=== PATIENT | female | born 1975 | race Caucasian/White ===

== ENCOUNTER 2018-05-17 16:17 | Emergency (ER) | payer BC, OTHER ==
[2018-05-17] MEDS ORDERED: LIDOCAINE 2% MPF 5 ML VIAL ONE (16:58)
--- NOTE | 2018-05-17 17:41 | EDPHYS ---
Physician Documentation [facility] Name: Claire Barnhart Age: 42 yrs Sex: Female : 1975 Arrival Date: 05/17/2018 Time: 16:21 Bed 26 Private MD: Alfredo Castaneda ED Physician Santos Degroot HPI: 05/17 16:45 This 42 yrs old Female presents to ER via Ambulatory with complaints of cp Insect Bite. 16:45 The patient presents with swelling, tenderness, erythema. The complaints affect the cp medial aspect of right thigh. 16:45 Context: possible spider bite. cp 16:45 Onset: The symptoms/episode began/occurred yesterday. cp 16:45 Associated signs and symptoms: Pertinent positives: warmth, Pertinent negatives fever. cp Treatment prior to arrival includes: no previous treatment. The patient has been recently seen at an urgent care, today, for similar complaints, and was sent to the [facility] Emergency Department for further evaluation. 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 - Social history:: Smoking status: Patient/guardian denies using tobacco. - Ebola Screening: : No symptoms or risks identified at this time. ROS: 16:50 Constitutional: Negative for body aches, chills, fever, poor PO intake. cp 16:50 Eyes: Negative for injury, pain, redness, and discharge. cp 16:50 Cardiovascular: Negative for chest pain. 16:50 Respiratory: Negative for cough, shortness of breath, wheezing. 16:50 Abdomen/GI: Negative for abdominal pain, nausea, vomiting, and diarrhea. 16:50 Skin: Positive for erythema, swelling, of the medial aspect of right thigh. 16:50 All other systems are negative. Exam: 16:55 Constitutional: The patient appears in no acute distress, alert, awake, non-toxic, well cp developed, well nourished. 16:55 Head/Face: Normocephalic, atraumatic. cp 16:55 Eyes: Periorbital structures: appear normal, Conjunctiva: normal, no exudate, no injection, Lids and lashes: appear normal, bilaterally. 16:55 ENT: External ear(s): are unremarkable, Nose: is normal, Mouth: is normal, Posterior pharynx: Airway: no evidence of obstruction, patent. 16:55 Chest/axilla: Inspection: normal. 16:55 Cardiovascular: Rate: normal. 16:55 Respiratory: the patient does not display signs of respiratory distress, Respirations: normal. 16:55 Skin: cellulitis, well demarcated, on the medial aspect of right thigh, induration, that is mild is noted, located on the medial aspect of right thigh. Vital Signs: 16:28 BP 116 / 95; Pulse 98; Resp 16 S; Temp 99.0(O); Pulse Ox 98% on R/A; Weight 64.41 kg aa5 (R); Height 5 ft. 1 in. (154.94 cm) (R); Pain 7/10; 16:28 Body Mass Index 26.83 (64.41 kg, 154.94 cm) aa5 MDM: 16:29 Patient medically screened. cp 17:00 Differential diagnosis: cellulitis, abscess. cp 17:40 Data reviewed: vital signs, nurses notes. cp 17:40 Counseling: I had a detailed discussion with the patient and/or guardian regarding: the cp historical points, exam findings, and any diagnostic results supporting the discharge/admit diagnosis, to return to the emergency department if symptoms worsen or persist or if there are any questions or concerns that arise at home. ED course: VSS. Area of erythema outlined and will discharge to home for continued monitoring. 05/17 16:39 Order name: I\T\D Setup; Complete Time: 16:48 cp Administered Medications: 08:00 Drug: Clindamycin 300 mg Route: PO; ph 18:05 Follow up: Response: No adverse reaction ph 17:15 Drug: Lidocaine (2 %) 5 mg Route: Infiltration; ph 18:05 Follow up: Response: No adverse reaction ph Disposition: 05/17/18 17:40 Discharged to Home. Impression: Cellulitis of right lower limb. - Condition is Stable. - Discharge Instructions: Cellulitis, Adult. - Prescriptions for Clindamycin HCl 300 mg Oral Capsule - take 1 capsule by ORAL route every 6 hours for 10 days; 40 capsule. Ibuprofen 800 mg Oral Tablet - take 1 tablet by ORAL route every 8 hours As needed take with food; 30 tablet. - Medication Reconciliation Form, Thank You Letter, Antibiotic Education, Prescription Opioid Use form. - Follow up: Private Physician; When: 48 Hours; Reason: Worsening of condition. - Problem is new. - Symptoms have improved. Addendum: 05/21/2018 07:02 Co-signature as Attending Physician, Santos Degroot MD. r n Signatures: Santos Degroot MD MD rn Laurence Menjivar RN RN aa5 Micheline Shaw RN RN ph Brody Gilmore PA PA cp Corrections: (The following items were deleted from the chart) 05/17 18:06 17:40 05/17/2018 17:40 Discharged to Home. Impression: Cellulitis of right lower limb. ph Condition is Stable. Forms are Medication Reconciliation Form, Thank You Letter, Antibiotic Education, Prescription Opioid Use. Follow up: Private Physician; When: 48 Hours; Reason: Worsening of condition. Problem is new. Symptoms have improved. cp
--- NOTE | 2018-05-17 17:41 | ER ---
Nurse's Notes [facility] Name: Claire Barnhart Age: 42 yrs Sex: Female : 1975 Arrival Date: 05/17/2018 Time: 16:21 Bed 26 Private MD: Alfredo Castaneda Diagnosis: Cellulitis of right lower limb Presentation: 05/17 16:26 Presenting complaint: Patient states: "I think I have a spider bite on my right leg and aa5 I went to urgent care but they sent me here because it's streaking". Transition of care: patient was not received from another setting of care. Onset of symptoms was May 15, 2018. Risk Assessment: Do you want to hurt yourself or someone else? Patient reports no desire to harm self or others. Initial Sepsis Screen: Does the patient meet any 2 criteria? No. Patient's initial sepsis screen is negative. Does the patient have a suspected source of infection? No. Patient's initial sepsis screen is negative. Care prior to arrival: None. 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 - Social history:: Smoking status: Patient/guardian denies using tobacco. - Ebola Screening: : No symptoms or risks identified at this time. Screenin:15 Abuse screen: Denies threats or abuse. Denies injuries from another. Nutritional ph screening: No deficits noted. Tuberculosis screening: No symptoms or risk factors identified. Fall Risk None identified. Assessment: 17:11 General: Appears in no apparent distress. comfortable, well groomed, Behavior is calm, ph cooperative, appropriate for age, Denies fever, feeling ill. Pain: Complains of pain in medial aspect of right thigh Pain radiates to right knee. Neuro: Neuro: Level of Consciousness is awake, alert, obeys commands, Oriented to person, place, time, situation. Cardiovascular: Capillary refill < 3 seconds in bilateral fingers Patient's skin is warm and dry. Respiratory: Airway is patent Respiratory effort is even, unlabored, Respiratory pattern is regular, symmetrical. GI: No signs and/or symptoms were reported involving the gastrointestinal system. Patient currently denies nausea, vomiting. Derm: Skin is healthy with good turgor, Skin is pink, warm \\T\\ dry. Abscess located on medial aspect of right thigh is nickel sized, has no drainage, has foul odor, is red, is raised. Musculoskeletal: Circulation, motion, and sensation intact. Range of motion: intact in all extremities. 17:15 Reassessment: Patient appears in no apparent distress at this time. Patient and/or ph family updated on plan of care and expected duration. Pain level reassessed. Patient is alert, oriented x 3, equal unlabored respirations, skin warm/dry/pink. ERP at bedside for I\\T\\D. Vital Signs: 16:28 BP 116 / 95; Pulse 98; Resp 16 S; Temp 99.0(O); Pulse Ox 98% on R/A; Weight 64.41 kg aa5 (R); Height 5 ft. 1 in. (154.94 cm) (R); Pain 7/10; 16:28 Body Mass Index 26.83 (64.41 kg, 154.94 cm) aa5 ED Course: 16:21 Patient arrived in ED. mr 16:22 Alfredo Castaneda MD is Private Physician. mr 16:26 Triage completed. aa5 16:27 Arm band placed on. aa5 16:29 Brody Gilmore PA is PHCP. cp 16:29 Santos Degroot MD is Attending Physician. cp 16:33 Micheline Shaw, VIVIANA is Primary Nurse. ph 17:15 Patient has correct armband on for positive identification. Placed in gown. Bed in low ph position. Call light in reach. Side rails up X2. Pulse ox on. NIBP on. Door closed. Noise minimized. Warm blanket given. 17:23 Assist provider with I \\T\\ D: of an abscess on right Set up I\\T\\D tray. Wound packed. 4X4s, mh 5 Dressing with 4X4s, tape Patient tolerated well. 18:05 Patient did not have IV access during this emergency room visit. ph Administered Medications: 08:00 Drug: Clindamycin 300 mg Route: PO; ph 18:05 Follow up: Response: No adverse reaction ph 17:15 Drug: Lidocaine (2 %) 5 mg Route: Infiltration; ph 18:05 Follow up: Response: No adverse reaction ph Outcome: 17:40 Discharge ordered by . cp 18:05 Discharged to home ambulatory, with significant other. ph 18:05 Condition: good 18:05 Discharge instructions given to patient, Instructed on discharge instructions, follow up and referral plans. medication usage, Demonstrated understanding of instructions, follow-up care, medications, Prescriptions given X 2. 18:06 Patient left the ED. ph Signatures: Ksenia Do Audri, RN RN 5 Micheline Shaw RN RN ph Brody Gilmore PA PA cp Martinez, Maria [facility]
[2018-05-17] MEDS ORDERED: CLINDAMYCIN HCL 150 MG CAP ONE (18:05)
[2018-05-17 18:12] VITALS: BP 116/95; TEMP 99; O2SAT 98
== END 2018-05-17 18:06 | disposition home or self-care (01) ==
LOC: ER 16:17
PROC: 0J9L0ZZ Drainage of Right Upper Leg Subcutaneous Tissue and Fascia, Open Approach (ICD-10-PCS; principal; 2018-05-17)
DX: L03.115 Cellulitis of right lower limb (principal); E78.5 Hyperlipidemia, unspecified; E07.9 Disorder of thyroid, unspecified
CPT/HCPCS: 99284

== ENCOUNTER 2021-04-15 06:05 | Emergency (ER) | payer MEDICARE, OTHER ==
--- OUTSIDE RECORDS SUMMARY | 2021-04-15 06:09 | XMS REPORT | Continuity of Care Document ---
:1975 [address] [facility] t Address [address] [place] [address] Care Team Providers Name Role Phone PCP, DOES NOT HAVE A Primary Care Physician Unavailable George NICHOLAS Attending Clinician Unavailable George Nicholas MD Attending Clinician APRIL Attending Clinician Unavailable Hundgeorge MEDICAL ADMINISTRATIVE ASSISTANT-C Attending Clinician SYLVESTER SAUNDERS Attending Clinician Unavailable Sylvester Saunders MD Attending Clinician [id number] Attending Clinician Unavailable [id number] Attending Clinician Unavailable Payers Payer Name Policy Type Policy Number Effective Date Expiration Date S donnie DAVE [facility] 2 [id number] 1270-04-01 ADMIN SERVICES 00:00:00 Problems Condition Condition Condition Status Onset Resolution Last Treating Co mments Source Name Details Category Date Date Treatment Clinician Date Hypertensi Hypertensi Disease Active K elsey on on 10-30 Seybold 00:00: 00 No known No known Disease Unive rs active active ity of problems problems [facility] Allergies, Adverse Reactions, Alerts Allergy Allergy Status Severity Reaction(s) Onset Inactive Treating Comm ents Source Name Type Date Date Clinician NO KNOWN Drug Active Univers ALLERGIE Class ity of S [facility] Social History Social Habit Start Date Stop Date Quantity Comments Source Exposure to Not sure University of SARS-CoV-2 [facility] (event) Branch Tobacco use and 2021-03-16 2021-03-16 Never used Universit y of exposure 00:00:00 00:00:00 [facility] Alcohol intake 2021-03-16 2021-03-16 Lifetime University of 00:00:00 00:00:00 non-drinker [facility] ([facility] [place] Sex Ass[birth year] Universit y of 00:00:00 00:00:00 [facility] Smoking Status Start Date Stop Date Source Never smoker [facility] Medications Ordered Filled Start Stop Current Ordering Indication Dosage Frequency Signature Comments Components Source Medication Medication Date Date Medication? Clinician (SIG) Name Name LISINOPRIL Yes Take by Uni vers ORAL 2-01 mouth. ity of 08:55: [address] losartan Yes 50mg Take 50 mg Uni vers potassium 2-01 by mouth. ity o f (LOSARTAN 08:55: [place] ORAL) [address] [place] [address] LISINOPRIL Yes Take by Uni vers ORAL 2-01 mouth. ity of 08:55: [address] losartan Yes 50mg Take 50 mg Uni vers potassium 2-01 by mouth. ity o f (LOSARTAN 08:55: [place] ORAL) [address] [place] [address] Ketorolac 2020- No [id number] 60mg Ke lsey Tromethamin 10-22 Seybold e (TORADOL) 15:30: 15:40 60 mg/2 mL 00 :00 Ketorolac 2020- No [id number] 60mg 60 mg, Meaghan Tromethamin 10-22 intramuscu S eybold e (TORADOL) 15:30: 15:40 lar, ONCE, 60 mg/2 mL 00 :00 On Dorothea 10/22/20 at 1030, For 1 dose Levothyroxi Yes [id number] 50ug Take 1 Meaghan ne Sodium 7-13 tablet (50 Seyb old 50 MCG oral 00:00: mcg total) Tablet 00 by mouth daily Lisinopril Yes [id number] 10mg Take 1 K elsey 10 MG oral 7-13 tablet (10 Sey bold Tablet 00:00: mg total) 00 by mouth daily Levothyroxi Yes [id number] 50ug Take 1 Meaghan ne Sodium 7-13 tablet (50 Seyb old 50 MCG oral 00:00: mcg total) Tablet 00 by mouth daily Lisinopril Yes [id number] 10mg Take 1 K elsey 10 MG oral 7-13 tablet (10 Sey bold Tablet 00:00: mg total) 00 by mouth daily Phentermine Yes 1{tbl} Take 1 Ke lsey HCl 37.5 MG 7-07 tablet by Sey bold oral Tablet 00:00: mouth 00 daily Phentermine Yes 1{tbl} Take 1 Ke lsey HCl 37.5 MG 7-07 tablet by Sey bold oral Tablet 00:00: mouth 00 daily Vital Signs Vital Name Observation Time Observation Value Comments Source Systolic blood 2021-03-16 14:45:00 150 mm[facility]Hg[facility] Diastolic blood 2021-03-16 14:45:00 93 mm[Hg] [facility] Heart rate 2021-03-16 14:45:00 82 /min [facility] Body temperature 2021-03-16 14:45:00 36.89 Eliana [facility] Respiratory rate 2021-03-16 14:45:00 18 /min [facility] Body height 2021-03-16 14:45:00 154.9 cm [facility] Body weight 2021-03-16 14:45:00 67.586 kg [facility] BMI 2021-03-16 14:45:00 28.15 kg/m2 [facility] Systolic blood 2020-10-22 14:49:00 158 mm[Hg] Meaghansean Velasco pressure Diastolic blood 2020-10-22 14:49:00 99 mm[Hg] oYnise y Seybold pressure Heart rate 2020-10-22 14:49:00 118 /min Meaghan Junior perezbofemi Body temperature 2020-10-22 14:49:00 36.56 Eliana Ghazal ey Seybold Body height 2020-10-22 14:49:00 154.9 cm Meaghan S anabofemi Body weight 2020-10-22 14:49:00 62.143 kg Meaghan S anabold BMI 2020-10-22 14:49:00 25.89 kg/m2 Meaghan edmonds Oxygen saturation in 2020-10-22 14:49:00 98 /min Meaghan Velasco Arterial blood by Pulse oximetry Procedures Procedure Date / Time Performed Performing Clinician [facility] e PAP SMEAR-LIQUID 2021-03-16 16:05:00 Sheryl Nicholas [facility] Encounters Start End Encounter Admission Attending Care Care Encounter Source Date/Time Date/Time Type Type Clinicians Facility Department ID 2022-03-16 2022-03-16 Outpatient R AD, [facility] [id number] Univers 09:30:00 09:30:00 SHERYL [id number] ity [facility] 2021-06-08 2021-06-08 Outpatient R [facility] [id number] Univers 08:00:00 08:00:00 [id number] [facility] 2021-04-23 2021-04-23 Outpatient AD, [facility] [id number] Univers 14:40:00 14:40:00 [facility] [id number] [facility] 2021-03-23 2021-03-[address] [facility] [id number] Univers 00:00:00 00:00:00 Management Sheryl GONZALEZ [id number] [id number] [phone] [place] dical NAL [address] [place] [address] 2021-03-16 2021-03-[address] [facility] [id number] Univers 08:30:00 10:00:20 Visit Sheryl George GONZALEZ [id number] ity [facility] [id number] [id number] [place] dical NAL [address] [place] [address] 2021-03-16 2021-03-16 Outpatient R AD, [facility] [id number] Univers 08:30:00 10:00:20 SHERYL [facility] 2020-10-30 2020-10-30 Outpatient MEAGHAN CHEN [id number] Meaghan 08:30:00 08:30:00 ELEUTERIO martinez 2020-10-29 2020-10-29 Office Faraz Chen [id number] Meaghan 08:30:36 09:00:36 Visit Eleuterio Smith [id number] Se loco [id number] 2020-10-29 2020-10-29 Outpatient MEAGHAN SAUNDERS [id number] Meaghan 08:00:00 08:00:00 SARAHI Seybol d 2020-10-22 2020-10-22 Office Chip Faraz [id number] Meaghan 09:47:19 10:17:19 Visit Sarahi Smith [id number] Se isaicash Sylvester [id number] 2020-08-25 2020-08-25 Outpatient LAB90 MEAGHAN HUGIGNS [id number] Meaghan 17:05:00 17:05:00 Seybol d 2020-08-25 2020-08-25 Outpatient [id number] MEAGHAN HUGGINS [id number] Meaghan 17:00:00 17:00:00 Seybol d 2020-08-25 2020-08-25 Outpatient MEAGHAN SAUNDERS [id number] Meaghan 16:15:00 16:15:00 SARAHI martinez Results This patient has no known results.
[2021-04-15] MEDS ORDERED: HYDROCODONE/APAP 5/325 MG TAB ONE (06:35)
--- NOTE | 2021-04-15 08:41 | RAD REPORT ---
EXAM DESCRIPTION: RAD - Ankle Left 3 View - 04/15/2021 6:37 am CLINICAL HISTORY: ankle pain COMPARISON: No comparisons FINDINGS: Transverse thin lucency is seen in the distal fibula which may represent nondisplaced frac ture. Mild soft tissue swelling is present about ankle. Mildly displaced transverse fracture is also seen at the base of the fifth metatarsal.
--- NOTE | 2021-04-15 08:42 | RAD REPORT ---
EXAM DESCRIPTION: RAD - Foot Left 3 View - 04/15/2021 6:37 am CLINICAL HISTORY: fall, pain COMPARISON: No comparisons FINDINGS: Mildly fragmented transverse fracture is seen at the base of the fifth metatarsal compatib le with a Levy fracture. No dislocation is evident.
--- NOTE | 2021-04-15 09:12 | EDPHYS ---
Physician Documentation [facility] Name: Claire Saldaña Age: 45 yrs Sex: Female : 1975 Arrival Date: 04/15/2021 Time: 06:11 Bed 15 Private MD: ED Physician Santos Degroot HPI: 04/15 06:26 This 45 yrs old Female presents to ER via Wheelchair with complaints of Foot Injury, jmm Ankle Injury. 06:26 The patient presents with an injury, pain, that is acute. Onset: The symptoms/episode jmm began/occurred acutely, just prior to arrival. Modifying factors: The symptoms are alleviated by remaining still, the symptoms are aggravated by movement, weight bearing. Associated signs and symptoms: Pertinent positives: swelling, Pertinent negatives calf tenderness, fever, nausea, numbness, rash, tingling, vomiting, warmth, weakness. Treatment prior to arrival includes: no previous treatment. It is unknown whether or not the patient has had similar symptoms in the past. 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 - Social history:: Smoking status: Patient denies any tobacco usage or history of. ROS: 06:26 Constitutional: Negative for fever, chills, and weight loss, Cardiovascular: Negative jmm for chest pain, palpitations, and edema, Respiratory: Negative for shortness of breath, cough, wheezing, and pleuritic chest pain. 06:26 MS/extremity: Positive for injury or acute deformity. 06:26 All other systems are negative. Exam: 06:26 Constitutional: This is a well developed, well nourished patient who is awake, alert, jmm and in no acute distress. Head/Face: atraumatic. Eyes: EOMI, no conjunctival erythema appreciated ENT: Moist Mucus Membranes Neck: Trachea midline, Supple Chest/axilla: Normal chest wall appearance and motion. Cardiovascular: Regular rate and rhythm. No edema appreciated Respiratory: Normal respirations, no respiratory distress appreciated Abdomen/GI: Non distended, soft Back: Normal ROM Skin: General appearance color normal 06:26 Neuro: Awake and alert Psych: Behavior is normal, Mood is normal, Patient is cooperative and pleasant 06:26 Musculoskeletal/extremity: ROM: intact in all extremities, swelling noted to the left lateral foot, full dorsalis pedis pulse, compartments are soft, left lateral malleolus ttp, NVI. Vital Signs: 06:18 BP 150 / 102; Pulse 117; Resp 16 S; Temp 97.9(TE); Pulse Ox 100% on R/A; Weight 63.5 kg bb (R); Height 5 ft. 2 in. (157.48 cm) (R); Pain 10/10; 09:15 BP 138 / 77; Pulse 80; Resp 16; Temp 98.6; Pulse Ox 98% ; Pain 2/10; cb5 06:18 Body Mass Index 25.61 (63.50 kg, 157.48 cm) bb MDM: 06:20 Patient medically screened. [facility] 09:08 Data reviewed: vital signs, nurses notes. Counseling: I had a detailed discussion with yolis the patient and/or guardian regarding: the historical points, exam findings, and any diagnostic results supporting the discharge/admit diagnosis, radiology results, the need for outpatient follow up, to return to the emergency department if symptoms worsen or persist or if there are any questions or concerns that arise at home. ED course: Xray reveals fracture to the right 5th metatarsal. Advised to follow up with ortho/podiatry. Patient otherwise given strict return precautions. Patient understood and agrees with the plan of care . 04/15 06:22 Order name: Ankle Left 3 View XRAY; Complete Time: 08:50 [facility] 04/15 06:22 Order name: Foot Left 3 View XRAY; Complete Time: 08:50 [facility] 04/15 06:22 Order name: Ice pack; Complete Time: 06:30 [facility] 04/15 08:17 Order name: Posterior Leg Splint; Complete Time: 09:49 [facility] 04/15 08:17 Order name: Crutches; Complete Time: 09:49 deiys Administered Medications: 06:32 Drug: HYDROcodone-acetaminophen 5 mg-325 mg 1 tabs Route: PO; tk1 Disposition Summary: 04/15/21 09:11 Discharge Ordered Location: Home jmm Condition: Stable jmm Diagnosis - Fracture of the Left 5th Metacarpal jm Followup: jmm - With: Private Physician - When: 2 - 3 days - Reason: Recheck today's complaints, Continuance of care, Re-evaluation by your physician Discharge Instructions: - Discharge Summary Sheet jmm - Metatarsal Fracture jm Forms: - Medication Reconciliation Form jm - Thank You Letter jm - Antibiotic Education [facility] - Prescription Opioid Use jm Prescriptions: - Ultracet 37.5-325 mg Oral Tablet - take 1 tablet by ORAL route every 6 hours - for up to 5 days; do not exceed 8 jmm tablets per day.; 20 tablet; Refills: 0, Product Selection Permitted Addendum: 04/17/2021 07:02 Co-signature as Attending Physician, Santos Degroot MD I agree with the assessment and r n plan of care. Signatures: Dispatcher [employer] EDMS Zach Rivas PA PA jmm Ballard, Brenda, RN RN bb Nieto, Roman, MD MD rn Kirby, Tammie tk1
--- NOTE | 2021-04-15 09:12 | ER ---
Nurse's Notes [facility] Name: Claire Saldaña Age: 45 yrs Sex: Female : 1975 Arrival Date: 04/15/2021 Time: 06:11 Bed 15 Private MD: Diagnosis: Fracture of the Left 5th Metacarpal Presentation: 04/15 06:18 Chief complaint: Patient states: she fell down 4 steps about 40 minutes ago injuring bb left ankle she heard a pop denies LOC and did not hit her head she is unable to bear weight on it. Coronavirus screen: At this time, the client does not indicate any symptoms associated with coronavirus-19. Ebola Screen: No symptoms or risks identified at this time. Initial Sepsis Screen: Does the patient meet any 2 criteria? No. Patient's initial sepsis screen is negative. Does the patient have a suspected source of infection? No. Patient's initial sepsis screen is negative. Risk Assessment: Do you want to hurt yourself or someone else? Patient reports no desire to harm self or others. Onset of symptoms was April 15, 2021. 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 - Social history:: Smoking status: Patient denies any tobacco usage or history of. Screenin:19 Abuse screen: Denies threats or abuse. Denies injuries from another. Nutritional tk1 screening: No deficits noted. Tuberculosis screening: No symptoms or risk factors identified. Fall Risk None identified. Assessment: 06:19 Pain: Complains of pain in dorsum of left foot Pain does not radiate. Pain currently is tk1 10 out of 10 on a pain scale. Quality of pain is described as aching, Pain began 1 hour ago. Is continuous. Neuro: Level of Consciousness is awake, alert, obeys commands, Oriented to person, place, time, Customer Advisor Specialist are equal bilaterally Moves all extremities. Gait is Limping with injury to left foot.. Speech is normal, Facial symmetry appears normal, Pupils are PERRLA. Cardiovascular: Capillary refill < 3 seconds is brisk in bilateral fingers Clubbing of nail beds is absent JVD is absent Patient's skin is warm and dry. Respiratory: Airway is patent Respiratory effort is even, unlabored, Respiratory pattern is regular. GI: No deficits noted. No signs and/or symptoms were reported involving the gastrointestinal system. : No deficits noted. No signs and/or symptoms were reported regarding the genitourinary system. EENT: No deficits noted. No signs and/or symptoms were reported regarding the EENT system. Derm: No deficits noted. No signs and/or symptoms reported regarding the dermatologic system. Musculoskeletal: Swelling present in dorsum of left foot Tenderness present in dorsum of left foot. Injury Description: Bruise sustained to dorsum of left foot Deformity sustained to dorsum of left foot is convex. 06:55 Reassessment: Report given to VIVIANA Norris. tk1 07:00 General: Appears comfortable, Behavior is calm, cooperative, appropriate for age. Pain: cb5 Complains of pain in left foot and dorsum of left foot Pain currently is 3 out of 10 on a pain scale. Quality of pain is described as aching, Pain began Is. Neuro: Level of Consciousness is awake, alert, obeys commands, Oriented to person, place, time. Cardiovascular: Capillary refill < 3 seconds Clubbing of nail beds is absent JVD is absent. Respiratory: Airway is patent Respiratory effort is even, Respiratory pattern is regular. Respiratory: GI: No deficits noted. No signs and/or symptoms were reported involving the gastrointestinal system. : No deficits noted. No signs and/or symptoms were reported regarding the genitourinary system. : No deficits noted. Musculoskeletal: Swelling present in left foot Tenderness present in left foot. Injury Description: Bruise sustained to left foot Deformity sustained to left foot. Vital Signs: 06:18 BP 150 / 102; Pulse 117; Resp 16 S; Temp 97.9(TE); Pulse Ox 100% on R/A; Weight 63.5 kg bb (R); Height 5 ft. 2 in. (157.48 cm) (R); Pain 10/10; 09:15 BP 138 / 77; Pulse 80; Resp 16; Temp 98.6; Pulse Ox 98% ; Pain 2/10; cb5 06:18 Body Mass Index 25.61 (63.50 kg, 157.48 cm) ED Course: 06:11 Patient arrived in ED. 06:13 Zach Rivas PA is PHCP. [facility] 06:13 Santos Degroot MD is Attending Physician. [facility] 06:18 Heather Bailon is Primary Nurse. tk1 06:19 Patient has correct armband on for positive identification. Bed in low position. Call tk1 light in reach. Adult w/ patient. Pulse ox on. NIBP on. Ice pack to injury. 06:19 No provider procedures requiring assistance completed. tk1 06:20 Triage completed. bb 06:20 Arm band placed on Patient placed in an exam room, on a stretcher, on pulse oximetry. bb Family accompanied patient. 06:37 Ankle Left 3 View XRAY In Process Unspecified. EDMS 06:37 Foot Left 3 View XRAY In Process Unspecified. EDMS 09:58 Patient did not have IV access during this emergency room visit. cb5 Administered Medications: 06:32 Drug: HYDROcodone-acetaminophen 5 mg-325 mg 1 tabs Route: PO; tk1 Outcome: 09:11 Discharge ordered by . [facility] 09:58 Discharged to home ambulatory, with crutches, pt demonstrated back properly how to cb5 utlize crutches 09:58 Condition: stable 09:58 Discharge instructions given to patient, family. 09:58 Patient left the ED. cb5 Signatures: Dispatcher [employer] EDCA Zach Rivas PA PA Sharmila Salazar, RN RN Darcei Ta Heather Bailon tk1 Linnette De Santiago, RN RN cb5
== END 2021-04-15 09:58 | disposition home or self-care (01) ==
LOC: ER 06:05
DX: S92.352A Displaced fracture of fifth metatarsal bone, left foot, initial encounter for closed fracture (principal); E07.9 Disorder of thyroid, unspecified; E78.5 Hyperlipidemia, unspecified
CPT/HCPCS: 99283